=== PATIENT | male | born 1955 | race African-American/Black ===

== ENCOUNTER 2017-06-12 16:01 | Emergency (ER) | payer OTHER ==
[~2017-06-12] VITALS: Ht 195.6 cm; Wt 72.0 kg
[~2017-06-12 16:01] MED LIST: LORTAB 7.5 OR; NAPROSYN500 MG PO; NO HOME MEDS; VENTOLIN HFA IN; ZITHROMAX500 MG OR; ZPAK PO
[2017-06-12 18:30] LABS: HEMATOCRIT 49.8 % (39.0-50.0); HEMOGLOBIN 16.7 g/dl (14.0-18.0); IMMATURE GRANULOCYTES 0.2 % (0.0-1.0); MEAN CELL VOLUME 97.3 fL CALC (80.0-100.0); MEAN CORPUSCULAR HGB 32.6 pG CALC (26.0-32.0); MEAN CORPUSCULAR HGB CONC 33.5 g/L CALC (32.0-36.0); NEUT# 11.17 thou/uL (1.82-7.42); RED BLOOD COUNT 5.12 mill/uL (4.70-6.10); RED CELL DISTRI WIDTH 13.4 % (11.5-15.5)
[2017-06-12 18:37] LABS: ALBUMIN 4.7 g/dL (3.2-5.0); ALKALINE PHOSPHATASE 113 u/l (38-126); ANION GAP 21 (6-22 (CALC)); BILIRUBIN, TOTAL 0.9 mg/dL (0.0-1.4); BUN 15 mg/dL (9-20); BUN/CREATININE RATIO 18 (12-20 (CALC)); CALCIUM 10.1 mg/dL (8.4-10.2); CARBON DIOXIDE 20 mmol/l (22-30); CHLORIDE 110 mmol/l (95-108); CREATININE 0.9 mg/dL (0.7-1.3); GFR > 60 ML/MIN (>=60 (CALC)); GFR FOR AFR.AMER. > 60 ML/MIN (>=60 (CALC)); GLUCOSE 174 mg/dL (75-110); POTASSIUM 4.6 mmol/l (3.5-5.1); SGOT/AST 38 u/l (17-59); SGPT/ALT 10 u/l (21-72); SODIUM 145 mmol/l (137-146); TOTAL PROTEIN 8.7 g/dL (6.3-8.2)
[2017-06-12 18:44] LABS: AMYLASE 101 u/l (30-110); LIPASE 67 u/l (23-300)
[2017-06-12 18:49] LABS: MYOGLOBIN 27 ng/mL (0 - 121)
[2017-06-12 21:02] LABS: URINE BILIRUBIN - DIPSTICK NEGATIVE (NEGATIVE); URINE BLOOD DIPSTICK LARGE (NEGATIVE); URINE COLOR YELLOW; URINE GLUCOSE - DIPSTICK NEGATIVE (NEGATIVE); URINE KETONE 15 mg/dL (NEGATIVE); URINE LEUK ESTERASE NEGATIVE (NEGATIVE); URINE NITRITE - DIPSTICK NEGATIVE (Negative); URINE PROTEIN - DIPSTICK NEGATIVE (NEG-TRACE); URINE SPECIFIC GRAVITY 1.015; URINE UROBILINOGEN - DIPSTICK 0.2 E.U./dL (0.2)
[2017-06-12 21:04] LABS: URINE CLARITY CLEAR
[2017-06-12 21:12] LABS: URINE RBC 25-50 RBC/hpf (0-5); URINE SQUAMOUS EPITHELIAL CELL FEW EPI/hpf (0-FEW)
[2017-06-12] MEDS ORDERED: CIPROFLOXACN500 MG PO (22:47)
[2017-06-12] MEDS ORDERED: PERCOCET 5/325M1 TAB PO (22:47)
[2017-06-12 22:52] VITALS: BP 139/65
== END 2017-06-12 23:15 | disposition home or self-care (01) | DRG 694 ==
LOC: ED 16:01
PROVIDERS: Emergency Medicine; Family Medicine
DX: N13.2 Hydronephrosis with renal and ureteral calculous obstruction (principal); I10 Essential (primary) hypertension; F17.210 Nicotine dependence, cigarettes, uncomplicated